=== PATIENT | female | born 1960 | race African-American/Black ===

== ENCOUNTER 2017-10-30 10:08 | Inpatient (IN) | payer MEDICARE ==
[~2017-10-30] VITALS: Ht 162.6 cm; Wt 90.2 kg
[2017-10-30] VITALS (634 sets, daily range): BP systolic 92–103; BP diastolic 53–67; PULSE 80–92; TEMP 97–98; O2SAT 95–100
[2017-10-30 13:25] LABS: ALBUMIN 3.7 gm/dL (3.5-5.0); BILIRUBIN,TOTAL 0.7 mg/dL (0.0-1.0); CALCIUM 8.5 mg/dL (8.4-10.2); CREATININE, serum 1.61 mg/dL (0.52-1.25); POTASSIUM 5.6 mmol/L (3.4-5.0); TOTAL PROTEIN 6.4 gm/dL (6.4-8.2)
[2017-10-30 13:38] LABS: TROPONIN-I 0.09 ng/mL (0.000-0.034)
[2017-10-30 13:45] LABS: ARTERIAL BLD GAS O2 SATURATION 97.5 % (92-100); ARTERIAL BLD GAS TCO2 CT 23.3; ARTERIAL BLOOD GAS BASE EXCESS -4.1 (-2-2); ARTERIAL BLOOD GAS pH 7.32 (7.35-7.45)
[2017-10-30 16:48] LABS: BASO % 0.2 % (0.0-2.0); EOS % 0.1 % (0-4.0); GRAN % 91.1 % (42.2-75.2); LYMPH # 0.9 (1.2-3.4); LYMPH % 6.5 % (20.0-51.0); MEAN CELL VOLUME 96 fl (80.0-100.0); MEAN CORPUSCULAR HGB CONC 32 g/dl (33.0-37.0); MEAN PLATELET VOLUME 11.8 fl (7.4-10.4); MONO # 0.2 (0.1-0.6); MONO % 1.3 % (1.7-9.3); PLATELET COUNT 148 K/mm3 (130-400); RED BLOOD COUNT 3.48 M/mm3 (4.10-5.30); REDCELL DISTRIBUTION WIDTH-CV 16.9 % (11.5-14.5)
[2017-10-30 16:50] LABS: HEMATOCRIT 33.5 % (37.0-47.0); HEMOGLOBIN 10.7 g/dl (12.5-16.0); MEAN CORPUSCULAR HEMOGLOBIN 31 pg (27.0-31.0)
[2017-10-30 16:57] LABS: ALBUMIN 3.7 gm/dL (3.5-5.0); BILIRUBIN,TOTAL 0.5 mg/dL (0.0-1.0); CALCIUM 8.8 mg/dL (8.4-10.2); CREATININE, serum 1.72 mg/dL (0.52-1.25); MAGNESIUM 1.6 mg/dL (1.6-2.3); PHOSPHOROUS 3.5 mg/dL (2.5-4.5); POTASSIUM 4.6 mmol/L (3.4-5.0); TOTAL PROTEIN 6.4 gm/dL (6.4-8.2)
[2017-10-30 17:52] LABS: ARTERIAL BLD GAS O2 SATURATION 95.4 % (92-100); ARTERIAL BLD GAS TCO2 CT 20.4; ARTERIAL BLOOD GAS BASE EXCESS -3.9 (-2-2); ARTERIAL BLOOD GAS HCO3 19.5 meq/L (22-26); ARTERIAL BLOOD GAS PCO2 30.4 mmHg (35-45); ARTERIAL BLOOD GAS PO2 80.7 mmHg (80-100); ARTERIAL BLOOD GAS pH 7.43 (7.35-7.45)
[2017-10-30 18:52] LABS: CREATININE, serum 1.65 mg/dL (0.52-1.25); POTASSIUM 4.4 mmol/L (3.4-5.0)
[2017-10-30 20:08] LABS: CALCIUM 8.8 mg/dL (8.4-10.2); CREATININE, serum 1.68 mg/dL (0.52-1.25); POTASSIUM 4.4 mmol/L (3.4-5.0)
[2017-10-30 22:16] LABS: CALCIUM 8.9 mg/dL (8.4-10.2); CREATININE, serum 1.64 mg/dL (0.52-1.25); POTASSIUM 4.3 mmol/L (3.4-5.0)
[2017-10-30 22:35] LABS: ARTERIAL BLD GAS O2 SATURATION 92.4 % (92-100); ARTERIAL BLD GAS TCO2 CT 24.1; ARTERIAL BLOOD GAS BASE EXCESS -0.6 (-2-2); ARTERIAL BLOOD GAS PCO2 34.2 mmHg (35-45); ARTERIAL BLOOD GAS PO2 66.7 mmHg (80-100); ARTERIAL BLOOD GAS pH 7.45 (7.35-7.45)
[2017-10-31] VITALS (848 sets, daily range): BP systolic 91–135; BP diastolic 54–75; PULSE 72–111; TEMP 97.7–98.9; O2SAT 92–100
[2017-10-31 00:34] LABS: CALCIUM 8.9 mg/dL (8.4-10.2); CREATININE, serum 1.62 mg/dL (0.52-1.25); POTASSIUM 4.1 mmol/L (3.4-5.0)
[2017-10-31 04:40] LABS: ARTERIAL BLD GAS O2 SATURATION 93.3 % (92-100); ARTERIAL BLD GAS TCO2 CT 19.8; ARTERIAL BLOOD GAS BASE EXCESS -6.2 (-2-2); ARTERIAL BLOOD GAS HCO3 18.8 meq/L (22-26); ARTERIAL BLOOD GAS PCO2 35.4 mmHg (35-45); ARTERIAL BLOOD GAS PO2 77.2 mmHg (80-100); ARTERIAL BLOOD GAS pH 7.34 (7.35-7.45)
[2017-10-31 05:40] LABS: BASO % 0.1 % (0.0-2.0); GRAN # 8.7 (1.4-6.5); GRAN % 87.8 % (42.2-75.2); LYMPH % 9.6 % (20.0-51.0); MEAN CELL VOLUME 94 fl (80.0-100.0); MEAN CORPUSCULAR HGB CONC 32 g/dl (33.0-37.0); MEAN PLATELET VOLUME 11.5 fl (7.4-10.4); MONO # 0.2 (0.1-0.6); MONO % 1.9 % (1.7-9.3); PLATELET COUNT 151 K/mm3 (130-400); RED BLOOD COUNT 3.45 M/mm3 (4.10-5.30)
[2017-10-31 05:57] LABS: HEMATOCRIT 32.5 % (37.0-47.0); HEMOGLOBIN 10.4 g/dl (12.5-16.0); MEAN CORPUSCULAR HEMOGLOBIN 30 pg (27.0-31.0)
[2017-10-31 05:59] LABS: CALCIUM 8.9 mg/dL (8.4-10.2); CREATININE, serum 1.68 mg/dL (0.52-1.25); MAGNESIUM 1.6 mg/dL (1.6-2.3); POTASSIUM 4.1 mmol/L (3.4-5.0)
[2017-10-31 09:39] LABS: ARTERIAL BLD GAS O2 SATURATION 95.8 % (92-100); ARTERIAL BLD GAS TCO2 CT 22.9; ARTERIAL BLOOD GAS BASE EXCESS -3.4 (-2-2); ARTERIAL BLOOD GAS HCO3 21.7 meq/L (22-26); ARTERIAL BLOOD GAS PCO2 39.1 mmHg (35-45); ARTERIAL BLOOD GAS PO2 90.4 mmHg (80-100); ARTERIAL BLOOD GAS pH 7.36 (7.35-7.45)
[2017-10-31 15:54] LABS: ARTERIAL BLD GAS O2 SATURATION 95.5 % (92-100); ARTERIAL BLD GAS TCO2 CT 19.6; ARTERIAL BLOOD GAS BASE EXCESS -5.4 (-2-2); ARTERIAL BLOOD GAS HCO3 18.6 meq/L (22-26); ARTERIAL BLOOD GAS PCO2 31.5 mmHg (35-45); ARTERIAL BLOOD GAS PO2 83.6 mmHg (80-100); ARTERIAL BLOOD GAS pH 7.39 (7.35-7.45)
[2017-11-01 04:38] VITALS: BP 110/59; PULSE 94; TEMP 98.8
[2017-11-01 06:21] LABS: GRAN # 7.5 (1.4-6.5); GRAN % 85.4 % (42.2-75.2); LYMPH % 10.9 % (20.0-51.0); MEAN CELL VOLUME 95 fl (80.0-100.0); MEAN CORPUSCULAR HGB CONC 32 g/dl (33.0-37.0); MEAN PLATELET VOLUME 12.8 fl (7.4-10.4); MONO # 0.3 (0.1-0.6); MONO % 3.4 % (1.7-9.3); PLATELET COUNT 154 K/mm3 (130-400); REDCELL DISTRIBUTION WIDTH-CV 17.2 % (11.5-14.5)
[2017-11-01 06:25] LABS: HEMATOCRIT 32.2 % (37.0-47.0); HEMOGLOBIN 10.4 g/dl (12.5-16.0); MEAN CORPUSCULAR HEMOGLOBIN 31 pg (27.0-31.0)
[2017-11-01 06:44] LABS: CALCIUM 8.7 mg/dL (8.4-10.2); CREATININE, serum 1.32 mg/dL (0.52-1.25); MAGNESIUM 1.9 mg/dL (1.6-2.3); PHOSPHOROUS 4.4 mg/dL (2.5-4.5); POTASSIUM 4.2 mmol/L (3.4-5.0)
[2017-11-01 08:00] VITALS: BP 126/60; PULSE 98; TEMP 98.2
[2017-11-01 11:58] VITALS: BP 128/71; PULSE 88; TEMP 98.8
[2017-11-01 15:59] VITALS: BP 119/68; PULSE 90; TEMP 98
[2017-11-01 22:51] VITALS: BP 108/56; PULSE 84; TEMP 98.4
[2017-11-02 01:33] VITALS: BP 105/64; PULSE 81; TEMP 98.3
[2017-11-02 04:49] VITALS: BP 106/62; PULSE 78; TEMP 98.2
[2017-11-02 06:41] LABS: BASO % 0.1 % (0.0-2.0); EOS % 0.1 % (0-4.0); GRAN # 4.9 (1.4-6.5); GRAN % 63.7 % (42.2-75.2); LYMPH # 2.1 (1.2-3.4); LYMPH % 27.9 % (20.0-51.0); MEAN CELL VOLUME 96 fl (80.0-100.0); MEAN CORPUSCULAR HGB CONC 31 g/dl (33.0-37.0); MEAN PLATELET VOLUME 11.6 fl (7.4-10.4); MONO # 0.6 (0.1-0.6); MONO % 7.8 % (1.7-9.3); PLATELET COUNT 148 K/mm3 (130-400); RED BLOOD COUNT 3.36 M/mm3 (4.10-5.30)
[2017-11-02 06:53] LABS: CALCIUM 8.6 mg/dL (8.4-10.2); CREATININE, serum 1.15 mg/dL (0.52-1.25); MAGNESIUM 2.1 mg/dL (1.6-2.3); PHOSPHOROUS 3.8 mg/dL (2.5-4.5); POTASSIUM 4.3 mmol/L (3.4-5.0)
[2017-11-02 07:00] LABS: HEMATOCRIT 32.3 % (37.0-47.0); HEMOGLOBIN 10.1 g/dl (12.5-16.0); MEAN CORPUSCULAR HEMOGLOBIN 30 pg (27.0-31.0)
[2017-11-02 08:39] VITALS: BP 107/61; PULSE 76; TEMP 98.3
[2017-11-02] MEDS ORDERED: ALBUTEROL0.83 MG/ML IH (09:22)
[2017-11-02] MEDS ORDERED: ZYLOPRIM 100MG100 MG PO (09:23)
[2017-11-02] MEDS ORDERED: COREG 25MG25 MG/TAB PO (09:24)
[2017-11-02] MEDS ORDERED: LIPITOR 80MG80 MG PO (09:24)
[2017-11-02] MEDS ORDERED: LASIX 20MG TABL20 MG PO (09:27)
[2017-11-02] MEDS ORDERED: NEURONTIN300 MG/CAP PO (09:40)
[2017-11-02] MEDS ORDERED: JANUVIA50 MG PO (09:41)
[2017-11-02] MEDS ORDERED: GLUCOTROL 5M5 MG/TAB PO (09:41)
[2017-11-02] MEDS ORDERED: PRINIVIL40 MG PO (09:42)
[2017-11-02] MEDS ORDERED: GLUCOPHAGE1000 MG PO (09:42)
[2017-11-02] MEDS ORDERED: NYSTATIN CREAM15 GM TP (09:42)
[2017-11-02] MEDS ORDERED: ROXICODONE 55 MG/TAB PO (09:43)
[2017-11-02] MEDS ORDERED: PROTONIX20 MG PO (09:44)
[2017-11-02] MEDS ORDERED: ZANTAC 150MG T150 MG PO (09:45)
[2017-11-02] MEDS ORDERED: DELSYM30 MG/5 ML PO (09:47)
[2017-11-02] MEDS ORDERED: RT ADVAIR 228 DISKUS IH (09:48)
[2017-11-02] MEDS ORDERED: KLOR-CON M2020 MEQ PO (09:49)
[2017-11-02] MEDS ORDERED: TRIAMCINOLONE A15 GM TP (09:51)
[2017-11-02] MEDS ORDERED: AMBIEN 5MG TABLE5 MG PO (09:51)
[2017-11-02] MEDS ORDERED: LASIX 40MG TABL40 MG PO (10:57)
[2017-11-02] MEDS ORDERED: COREG12.5 MG PO (10:57)
[2017-11-02 12:17] VITALS: BP 116/61; PULSE 80; TEMP 97.5
[2017-11-02] MEDS ORDERED: OMNICEF 300MG300 MG PO (12:29)
[2017-11-02] MEDS ORDERED: MEDROL 4MG DOSPA4 MG PO (12:29)
== END 2017-11-02 17:35 | disposition home health service (06) | DRG 208 ==
LOC: ICU 10:08 → MEDICAL 10-31 18:34
PROVIDERS: Family Medicine; Internal Medicine Pulmonary Disease
PROC: 5A1935Z Respiratory Ventilation, Less than 24 Consecutive Hours (ICD-10-PCS; principal; 2017-10-30)
DX: J96.02 Acute respiratory failure with hypercapnia (principal); I50.23 Acute on chronic systolic (congestive) heart failure; J44.1 Chronic obstructive pulmonary disease with (acute) exacerbation; N17.9 Acute kidney failure, unspecified; I11.0 Hypertensive heart disease with heart failure; E87.5 Hyperkalemia; E11.65 Type 2 diabetes mellitus with hyperglycemia; T38.0X5A Adverse effect of glucocorticoids and synthetic analogues, initial encounter; F17.210 Nicotine dependence, cigarettes, uncomplicated; Z95.810 Presence of automatic (implantable) cardiac defibrillator
CPT/HCPCS: 99223-AI; 99232-AI; 99233-AI; 99239; J0456; J0692; J1644; J1650; J1815; J1940; J2704; J2920; J3010; J7050; J7512

== ENCOUNTER 2017-11-05 12:02 | Inpatient (IN) | payer MEDICARE ==
[~2017-11-05] VITALS: Ht 165.1 cm; Wt 86.1 kg
[2017-11-05] VITALS (489 sets, daily range): BP systolic 98–101; BP diastolic 56–70; PULSE 72–76; TEMP 98.2–98.4; O2SAT 53–100
[~2017-11-05 12:02] MED LIST: ALBUTEROL0.83 MG/ML IH; AMBIEN 5MG TABLE5 MG PO; COREG 25MG25 MG/TAB PO; COREG12.5 MG PO; DELSYM30 MG/5 ML PO; GLUCOPHAGE1000 MG PO; GLUCOTROL 5M5 MG/TAB PO; JANUVIA50 MG PO; KLOR-CON M2020 MEQ PO; LASIX 20MG TABL20 MG PO; LASIX 40MG TABL40 MG PO; LIPITOR 80MG80 MG PO; MEDROL 4MG DOSPA4 MG PO; NEURONTIN300 MG/CAP PO; NYSTATIN CREAM15 GM TP; OMNICEF 300MG300 MG PO; PRINIVIL40 MG PO; PROTONIX20 MG PO; ROXICODONE 55 MG/TAB PO; RT ADVAIR 228 DISKUS IH; TRIAMCINOLONE A15 GM TP; ZANTAC 150MG T150 MG PO; ZYLOPRIM 100MG100 MG PO
[2017-11-06] VITALS (1150 sets, daily range): BP systolic 88–107; BP diastolic 49–69; PULSE 59–98; TEMP 97.4–98.2; O2SAT 85–100
[2017-11-06 05:32] LABS: MEAN CELL VOLUME 93 fl (80.0-100.0); MEAN CORPUSCULAR HGB CONC 33 g/dl (33.0-37.0); MEAN PLATELET VOLUME 11.7 fl (7.4-10.4); PLATELET COUNT 153 K/mm3 (130-400); REDCELL DISTRIBUTION WIDTH-CV 16.2 % (11.5-14.5)
[2017-11-06 05:33] LABS: HEMATOCRIT 34.5 % (37.0-47.0); HEMOGLOBIN 11.3 g/dl (12.5-16.0); MEAN CORPUSCULAR HEMOGLOBIN 31 pg (27.0-31.0)
[2017-11-06 05:40] LABS: INR 1.1 (0.8-3.0); PROTHROMBIN TIME 13.2 SECONDS (9.7-12.8)
[2017-11-06 05:42] LABS: CREATININE, serum 1.14 mg/dL (0.52-1.25); PARTIAL THROMBOPLASTIN TIME 22.1 SECONDS (26.0-37.0); POTASSIUM 4.1 mmol/L (3.4-5.0)
[2017-11-06 05:56] LABS: TROPONIN-I 19.7 ng/mL (0.000-0.034)
[2017-11-07] VITALS (584 sets, daily range): BP systolic 90–125; BP diastolic 55–68; PULSE 72–87; TEMP 97.5–98.7; O2SAT 58–100
[2017-11-08] VITALS (11 sets, daily range): BP systolic 100–135; BP diastolic 45–95; PULSE 70–81; TEMP 98.4–99.6
[2017-11-08 06:15] LABS: BASO % 0.2 % (0.0-2.0); EOS # 0.4 (0.0-0.7); EOS % 4.8 % (0-4.0); GRAN # 3.9 (1.4-6.5); GRAN % 48.1 % (42.2-75.2); HEMATOCRIT 37.3 % (37.0-47.0); HEMOGLOBIN 12.1 g/dl (12.5-16.0); LYMPH # 3.3 (1.2-3.4); LYMPH % 39.9 % (20.0-51.0); MEAN CELL VOLUME 94 fl (80.0-100.0); MEAN CORPUSCULAR HEMOGLOBIN 31 pg (27.0-31.0); MEAN CORPUSCULAR HGB CONC 32 g/dl (33.0-37.0); MEAN PLATELET VOLUME 11.9 fl (7.4-10.4); MONO # 0.5 (0.1-0.6); MONO % 6.4 % (1.7-9.3); PLATELET COUNT 174 K/mm3 (130-400); RED BLOOD COUNT 3.95 M/mm3 (4.10-5.30)
[2017-11-08 06:18] LABS: PROTHROMBIN TIME 11.9 SECONDS (9.7-12.8)
[2017-11-08 06:28] LABS: CALCIUM 8.8 mg/dL (8.4-10.2); CREATININE, serum 1.17 mg/dL (0.52-1.25); POTASSIUM 4.2 mmol/L (3.4-5.0)
[2017-11-09 00:09] VITALS: BP 96/50; PULSE 85; TEMP 98.6
[2017-11-09 04:38] VITALS: BP 94/47; PULSE 72; TEMP 98.4
[2017-11-09 06:34] LABS: BASO % 0.3 % (0.0-2.0); EOS # 0.3 (0.0-0.7); EOS % 4.2 % (0-4.0); GRAN # 3.5 (1.4-6.5); GRAN % 50.2 % (42.2-75.2); LYMPH # 2.5 (1.2-3.4); LYMPH % 36.1 % (20.0-51.0); MEAN CELL VOLUME 95 fl (80.0-100.0); MEAN CORPUSCULAR HGB CONC 32 g/dl (33.0-37.0); MEAN PLATELET VOLUME 12.2 fl (7.4-10.4); MONO # 0.6 (0.1-0.6); MONO % 8.5 % (1.7-9.3); PLATELET COUNT 151 K/mm3 (130-400); RED BLOOD COUNT 3.63 M/mm3 (4.10-5.30); REDCELL DISTRIBUTION WIDTH-CV 16.1 % (11.5-14.5)
[2017-11-09 06:56] LABS: CALCIUM 8.6 mg/dL (8.4-10.2); CREATININE, serum 1.25 mg/dL (0.52-1.25); POTASSIUM 4.2 mmol/L (3.4-5.0)
[2017-11-09 07:11] LABS: HEMATOCRIT 34.3 % (37.0-47.0); MEAN CORPUSCULAR HEMOGLOBIN 30 pg (27.0-31.0)
[2017-11-09 07:39] VITALS: BP 119/63; PULSE 82; TEMP 97.8
[2017-11-09] MEDS ORDERED: DOXYCYCLINE 10100 MG PO (09:58)
[2017-11-09] MEDS ORDERED: ENTRESTO 49 MG1 EACH PO (09:59)
[2017-11-09] MEDS ORDERED: CEPHALEXIN500 M1 PO (10:02)
[2017-11-09] MEDS ORDERED: ASPIRIN E.C. 8181 MG PO (11:14)
[2017-11-09 11:37] VITALS: BP 98/40; PULSE 73; TEMP 97.5
[2017-11-09 15:23] VITALS: BP 114/71; PULSE 77; TEMP 98.4
[2017-11-09] MEDS ORDERED: NORCO 325 MG-51 TAB PO (17:39)
== END 2017-11-09 18:30 | disposition home health service (06) | DRG 223 ==
LOC: ICU 12:02 → MEDICAL 13:15 → ICU 13:15 → MEDICAL 11-07 12:33
PROVIDERS: Internal Medicine Cardiovascular Disease
PROC: B2111ZZ Fluoroscopy of Multiple Coronary Arteries using Low Osmolar Contrast (ICD-10-PCS; principal; 2017-11-06)
PROC: B2151ZZ Fluoroscopy of Left Heart using Low Osmolar Contrast (ICD-10-PCS; 2017-11-06)
PROC: 0JH609Z Insertion of Cardiac Resynchronization Defibrillator Pulse Generator into Chest Subcutaneous Tissue and Fascia, Open Approach (ICD-10-PCS; 2017-11-08)
PROC: 02HL3KZ Insertion of Defibrillator Lead into Left Ventricle, Percutaneous Approach (ICD-10-PCS; 2017-11-08)
PROC: 02H43KZ Insertion of Defibrillator Lead into Coronary Vein, Percutaneous Approach (ICD-10-PCS; 2017-11-08)
PROC: 02H63KZ Insertion of Defibrillator Lead into Right Atrium, Percutaneous Approach (ICD-10-PCS; 2017-11-08)
PROC: 02PA3MZ Removal of Cardiac Lead from Heart, Percutaneous Approach (ICD-10-PCS; 2017-11-08)
PROC: 0JPT0PZ Removal of Cardiac Rhythm Related Device from Trunk Subcutaneous Tissue and Fascia, Open Approach (ICD-10-PCS; 2017-11-08)
DX: I21.4 Non-ST elevation (NSTEMI) myocardial infarction (principal); I50.22 Chronic systolic (congestive) heart failure; I42.0 Dilated cardiomyopathy; E11.65 Type 2 diabetes mellitus with hyperglycemia; J44.9 Chronic obstructive pulmonary disease, unspecified; Z95.810 Presence of automatic (implantable) cardiac defibrillator; I25.10 Atherosclerotic heart disease of native coronary artery without angina pectoris; Z87.891 Personal history of nicotine dependence
CPT/HCPCS: 99222; 99232-AI; 99233-AI; 99239; C1769; C1882; C1887; C1898; C1900; J0690; J1644; J1650; J1815; J2250; J2704; J3010; J7030; Q9967

== ENCOUNTER → 2018-09-14 | Outpatient (CLI) | payer MEDICARE ==
[~2018-09-14] MED LIST changes: +ASPIRIN E.C. 8181 MG PO; +CEPHALEXIN500 M1 PO; +CHANTIX START M1 TAB PO; +COREG 3.123.125 MG/T PO; +DOXYCYCLINE 10100 MG PO; +DULCOLAX STOOL100 MG PO; +ENTRESTO 49 MG1 EACH PO; +FERROUSAL325 MG PO; +NORCO 325 MG-51 TAB PO; +PACERONE200 MG PO; +SINGULAIR 110 MG/TAB PO; +SPIRIVA RE2.5 MCG/Ac IH; +ZYRTEC 10MG10 MG PO
== END ==
LOC: COL.LAB 17:25
DX: H92.12 Otorrhea, left ear (principal)

== ENCOUNTER 2019-12-18 13:05 | Emergency (ER) | payer MEDICARE, MEDICAID ==
[~2019-12-18] VITALS: Ht 165.1 cm; Wt 82.3 kg
[2019-12-18 13:09] VITALS: TEMP 98.2
[2019-12-18 13:53] LABS: BASO # 0.1 (0.0-0.2); EOS # 0.1 (0.0-0.7); EOS % 2.9 % (0-4.0); GRAN # 2.9 (1.4-6.5); GRAN % 61.2 % (42.2-75.2); LYMPH # 1.1 (1.2-3.4); LYMPH % 22.6 % (20.0-51.0); MEAN CELL VOLUME 78 fl (80.0-100.0); MEAN CORPUSCULAR HGB CONC 31 g/dl (33.0-37.0); MEAN PLATELET VOLUME 11.5 fl (7.4-10.4); MONO # 0.6 (0.1-0.6); MONO % 12.1 % (1.7-9.3); PLATELET COUNT 187 K/mm3 (130-400); RED BLOOD COUNT 3.51 M/mm3 (4.10-5.30); REDCELL DISTRIBUTION WIDTH-CV 20.5 % (11.5-14.5)
[2019-12-18 13:56] LABS: HEMATOCRIT 27.5 % (37.0-47.0); HEMOGLOBIN 8.4 g/dl (12.5-16.0); MEAN CORPUSCULAR HEMOGLOBIN 24 pg (27.0-31.0)
[2019-12-18 14:09] LABS: ALANINE AMINOTRANSFERASE 28 U/L (4-34); ALBUMIN 4.2 gm/dL (3.5-5.0); ALKALINE PHOSPHATASE 110 U/L (50-136); ANION GAP 11 mmol/L (7-16); AST,SGOT 35 U/L (15-37); BLOOD UREA NITROGEN 44 mg/dL (7-17); C-REACTIVE PROTEIN 0.6 mg/dL (0.0-0.9); CALCIUM 9.3 mg/dL (8.4-10.2); CARBON DIOXIDE 22 mmol/L (22-30); CHLORIDE 99 mmol/L (98-107); CREATININE, serum 2.31 (0.52-1.25); GLUCOSE 123 mg/dL (74-106); POTASSIUM 4.3 mmol/L (3.4-5.0); SODIUM 132 mmol/L (137-145); TOTAL PROTEIN 7.4 gm/dL (6.4-8.2)
[2019-12-18 14:22] LABS: ERYTHROCYTE SEDIMENTATION RATE 34 mm/hr (0-30)
[2019-12-18 14:25] LABS: TROPONIN-I < 0.012 ng/mL (0.000-0.035)
[2019-12-18 16:17] LABS: COLLECTION METHOD CLEAN CATCH
[2019-12-18 16:23] LABS: MUCOUS Present /lpf; PH 7 (5-8); SQUAMOUS EPITHELIAL None Seen /hpf; URINE APPEARANCE Clear; URINE BACTERIA None Seen /hpf; URINE BILIRUBIN Negative (NEGATIVE); URINE BLOOD Negative (NEGATIVE); URINE COLOR Colorless; URINE GLUCOSE Negative (NEGATIVE); URINE KETONE Negative (NEGATIVE); URINE LEUKOCYTE ESTERASE Negative (NEGATIVE); URINE NITRATE Negative (NEGATIVE); URINE PROTEIN(semi-quant) Negative (NEGATIVE); URINE RBC 0-2 /hpf; URINE UROBILINOGEN Negative (NEGATIVE)
[2019-12-18 17:24] LABS: INR 2.2 (0.8-3.0); PROTHROMBIN TIME 26.8 SECONDS (9.7-12.8)
[2019-12-18] MEDS ORDERED: NORCO 325 MG-51 TAB PO (18:03)
[2019-12-18 18:17] VITALS: BP 109/78; PULSE 68
== END 2019-12-18 18:27 | disposition home or self-care (01) ==
LOC: COL.ER 13:05
PROVIDERS: Emergency Medicine
DX: M25.511 Pain in right shoulder (principal); R06.00 Dyspnea, unspecified; I13.0 Hypertensive heart and chronic kidney disease with heart failure and stage 1 through stage 4 chronic kidney disease, or unspecified chronic kidney disease; I50.9 Heart failure, unspecified; N18.9 Chronic kidney disease, unspecified; E11.9 Type 2 diabetes mellitus without complications; J44.9 Chronic obstructive pulmonary disease, unspecified; E78.5 Hyperlipidemia, unspecified; Z95.810 Presence of automatic (implantable) cardiac defibrillator; Z79.01 Long term (current) use of anticoagulants; Z87.891 Personal history of nicotine dependence; Z79.82 Long term (current) use of aspirin; Z79.84 Long term (current) use of oral hypoglycemic drugs; Z79.51 Long term (current) use of inhaled steroids
CPT/HCPCS: J2270

== ENCOUNTER 2020-01-12 13:59 | Emergency (ER) | payer MEDICARE, MEDICAID ==
[~2020-01-12] VITALS: Ht 165.1 cm; Wt 80.9 kg
[2020-01-12 14:07] VITALS: TEMP 97.7
[2020-01-12 14:57] LABS: BASO % 0.1 % (0.0-2.0); EOS # 0.1 (0.0-0.7); EOS % 0.8 % (0-4.0); GRAN # 5.9 (1.4-6.5); GRAN % 82.6 % (42.2-75.2); LYMPH # 0.6 (1.2-3.4); LYMPH % 8.8 % (20.0-51.0); MEAN CELL VOLUME 78 fl (80.0-100.0); MEAN CORPUSCULAR HGB CONC 29 g/dl (33.0-37.0); MEAN PLATELET VOLUME 10.1 fl (7.4-10.4); MONO # 0.5 (0.1-0.6); MONO % 7.1 % (1.7-9.3); PLATELET COUNT 212 K/mm3 (130-400); RED BLOOD COUNT 3.59 M/mm3 (4.10-5.30); REDCELL DISTRIBUTION WIDTH-CV 19.5 % (11.5-14.5)
[2020-01-12 15:06] LABS: ALBUMIN 3.8 gm/dL (3.5-5.0); C-REACTIVE PROTEIN 5.4 mg/dL (0.0-0.9); CALCIUM 9.1 mg/dL (8.4-10.2); CREATININE, serum 2.29 (0.52-1.25); POTASSIUM 4.3 mmol/L (3.4-5.0); TOTAL PROTEIN 7.5 gm/dL (6.4-8.2)
[2020-01-12 15:10] LABS: HEMATOCRIT 28.1 % (37.0-47.0); HEMOGLOBIN 8.1 g/dl (12.5-16.0); MEAN CORPUSCULAR HEMOGLOBIN 23 pg (27.0-31.0)
[2020-01-12 15:20] LABS: ERYTHROCYTE SEDIMENTATION RATE 74 mm/hr (0-30)
[2020-01-12] MEDS ORDERED: PREDNISONE20 MG PO (15:55)
[2020-01-12 16:00] VITALS: BP 102/57; PULSE 71
== END 2020-01-12 16:00 | disposition home or self-care (01) ==
LOC: COL.ER 13:59
PROVIDERS: Emergency Medicine
DX: M13.842 Other specified arthritis, left hand (principal); M13.841 Other specified arthritis, right hand; D64.9 Anemia, unspecified; E11.22 Type 2 diabetes mellitus with diabetic chronic kidney disease; N18.9 Chronic kidney disease, unspecified; J44.9 Chronic obstructive pulmonary disease, unspecified; I48.91 Unspecified atrial fibrillation; Z87.891 Personal history of nicotine dependence; Z79.51 Long term (current) use of inhaled steroids; Z79.84 Long term (current) use of oral hypoglycemic drugs
CPT/HCPCS: J7512

== ENCOUNTER 2020-02-20 12:35 | Inpatient (IN) | payer MEDICARE, MEDICAID ==
[~2020-02-20] VITALS: Ht 165.1 cm; Wt 86.3 kg
[~2020-02-20 12:35] MED LIST changes: +PREDNISONE20 MG PO
[2020-02-20 15:37] LABS: COLLECTION METHOD CLEAN CATCH
[2020-02-20 15:41] LABS: BASO % 0.5 % (0.0-2.0); EOS # 0.1 (0.0-0.7); GRAN # 5.7 (1.4-6.5); GRAN % 70.8 % (42.2-75.2); LYMPH # 1.5 (1.2-3.4); LYMPH % 19.1 % (20.0-51.0); MEAN CELL VOLUME 82 fl (80.0-100.0); MEAN CORPUSCULAR HGB CONC 30 g/dl (33.0-37.0); MEAN PLATELET VOLUME 11.1 fl (7.4-10.4); MONO # 0.6 (0.1-0.6); MONO % 7.9 % (1.7-9.3); PLATELET COUNT 226 K/mm3 (130-400); RED BLOOD COUNT 3.75 M/mm3 (4.10-5.30); REDCELL DISTRIBUTION WIDTH-CV 19.4 % (11.5-14.5)
[2020-02-20 15:42] LABS: HEMATOCRIT 30.9 % (37.0-47.0); HEMOGLOBIN 9.4 g/dl (12.5-16.0); MEAN CORPUSCULAR HEMOGLOBIN 25 pg (27.0-31.0)
[2020-02-20 15:46] LABS: INR 1.2 (0.8-3.0); PROTHROMBIN TIME 13.3 SECONDS (9.7-12.8)
[2020-02-20 15:51] LABS: ALBUMIN 3.8 gm/dL (3.5-5.0); BILIRUBIN,TOTAL 0.8 mg/dL (0.0-1.0); CALCIUM 9.6 mg/dL (8.4-10.2); CREATININE, serum 2.38 (0.52-1.25); MUCOUS Present /lpf; PH 6 (5-8); POTASSIUM 4.6 mmol/L (3.4-5.0); SQUAMOUS EPITHELIAL 0-2 /hpf; TOTAL PROTEIN 7.9 gm/dL (6.4-8.2); URINE APPEARANCE Clear; URINE BACTERIA None Seen /hpf; URINE BILIRUBIN Negative (NEGATIVE); URINE BLOOD Negative (NEGATIVE); URINE COLOR Straw; URINE GLUCOSE Negative (NEGATIVE); URINE KETONE Negative (NEGATIVE); URINE LEUKOCYTE ESTERASE Negative (NEGATIVE); URINE NITRATE Negative (NEGATIVE); URINE PROTEIN(semi-quant) Negative (NEGATIVE); URINE RBC 0-2 /hpf; URINE UROBILINOGEN Negative (NEGATIVE)
[2020-02-20 16:04] LABS: TROPONIN-I 0.024 ng/mL (0.000-0.035)
[2020-02-20 19:24] VITALS: BP 123/88; PULSE 72; TEMP 98.4
[2020-02-20 21:29] VITALS: BP 118/69; PULSE 76; TEMP 98.4
[2020-02-20] MEDS ORDERED: NOVOLOG 100U100 U/M1 SQ (22:52)
[2020-02-20] MEDS ORDERED: VICTOZA6 MG/ML SQ (22:53)
[2020-02-20] MEDS ORDERED: MAG64 110 MG-181 ECT (22:57)
[2020-02-20] MEDS ORDERED: VITAMIN D 1001000 IU PO (22:58)
[2020-02-20 23:21] VITALS: BP 106/69; PULSE 74; TEMP 97.7
[2020-02-21 02:58] VITALS: BP 112/69; PULSE 72; TEMP 97.6
[2020-02-21 07:51] VITALS: BP 105/72; PULSE 70; TEMP 98.5
[2020-02-21 08:34] LABS: BASO % 0.8 % (0.0-2.0); EOS # 0.2 (0.0-0.7); EOS % 3.6 % (0-4.0); GRAN # 3.6 (1.4-6.5); GRAN % 67.9 % (42.2-75.2); LYMPH % 19.1 % (20.0-51.0); MEAN CELL VOLUME 82 fl (80.0-100.0); MEAN CORPUSCULAR HGB CONC 31 g/dl (33.0-37.0); MONO # 0.4 (0.1-0.6); MONO % 7.8 % (1.7-9.3); PLATELET COUNT 178 K/mm3 (130-400); REDCELL DISTRIBUTION WIDTH-CV 19.5 % (11.5-14.5)
[2020-02-21 08:55] LABS: CALCIUM 8.8 mg/dL (8.4-10.2); CREATININE, serum 2.57 (0.52-1.25); MAGNESIUM 1.8 mg/dL (1.6-2.3); POTASSIUM 4.3 mmol/L (3.4-5.0)
[2020-02-21 09:07] LABS: HEMATOCRIT 30.2 % (37.0-47.0); HEMOGLOBIN 9.2 g/dl (12.5-16.0); MEAN CORPUSCULAR HEMOGLOBIN 25 pg (27.0-31.0)
[2020-02-21] MEDS ORDERED: DAZIDOX10 MG PO (10:22)
[2020-02-21] MEDS ORDERED: ALDACTONE 25MG25 M1 PO (10:22)
[2020-02-21] MEDS ORDERED: ZYLOPRIM 100MG100 MG PO (10:24)
[2020-02-21] MEDS ORDERED: ATARAX 10MG10 MG/TAB PO (10:27)
[2020-02-21] MEDS ORDERED: ULTRAM 50MG TAB50 MG PO (10:27)
[2020-02-21] MEDS ORDERED: CORDARONE200 MG/TAB PO (10:30)
[2020-02-21] MEDS ORDERED: VITAMIN D 50,1.25 MG PO (10:32)
[2020-02-21] MEDS ORDERED: COZAAR 25MG25 MG/TAB PO (10:35)
[2020-02-21] MEDS ORDERED: PEPCID 20MG TAB20 MG PO (10:35)
[2020-02-21] MEDS ORDERED: TOPROL XL 25MG25 MG PO (10:36)
[2020-02-21] MEDS ORDERED: LANTUS SOLOS100 U/ML SQ (10:36)
[2020-02-21] MEDS ORDERED: TRELEGY ELLIPT1 EACH IH (10:49)
[2020-02-21 12:26] VITALS: BP 114/61; PULSE 72; TEMP 98
== END 2020-02-21 15:10 | disposition home or self-care (01) | DRG 291 ==
LOC: COL.ER 12:35 → MEDICAL 17:07
PROVIDERS: Emergency Medicine; Physician Assistant; ADMIT Internal Medicine
DX: I13.0 Hypertensive heart and chronic kidney disease with heart failure and stage 1 through stage 4 chronic kidney disease, or unspecified chronic kidney disease (principal); I50.23 Acute on chronic systolic (congestive) heart failure; I42.8 Other cardiomyopathies; E78.5 Hyperlipidemia, unspecified; E11.22 Type 2 diabetes mellitus with diabetic chronic kidney disease; K21.9 Gastro-esophageal reflux disease without esophagitis; G47.33 Obstructive sleep apnea (adult) (pediatric); D64.9 Anemia, unspecified; N18.9 Chronic kidney disease, unspecified; J44.9 Chronic obstructive pulmonary disease, unspecified; T38.0X5A Adverse effect of glucocorticoids and synthetic analogues, initial encounter; Z87.891 Personal history of nicotine dependence
CPT/HCPCS: OP; 99222-AI; 99239; J1644; J1815; J1940